=== PATIENT | male | born 1960 | race American Indian/Alaskan Native ===

== ENCOUNTER 2019-10-07 13:49 | Emergency (ER) | payer OTHER, SELFPAY ==
[2019-10-07 13:53] VITALS: BP 158/83; PULSE 118; RESP 16; TEMP 36.6; O2SAT 98
--- NOTE | 2019-10-07 13:57 | ED.DENTAL ---
HPI - Dental/Oral General Chief complaint: Dental/Oral Stated complaint: tooth pain Time Seen by Provider: 10/07/19 13:57 Source: patient and RN notes reviewed History of Present Illness HPI Narrative: Patient is a 59-year-old male who presents the urgent care with complaints of 2 to 3-week history of upper left dental pain. Patient states as of yesterday his left cheek started to swell and is become more painful. Patient denies of any fever, nausea, vomiting. Patient states that his dentist is been out for 6 months due to a fall and then coronavirus. Patient states that he will try to look for another dentist next week . Patient has not taken anything for his pain. No other acute complaints. No acute distress noted. Patient read the plan of care. Related Data Home Medications Medication Instructions Recorded Confirmed losartan 25 mg tablet 25 mg PO DAILY tablet 05/19/19 10/07/19 atorvastatin 40 mg tablet 40 mg PO DAILY 05/27/19 10/07/19 carvedilol 6.25 mg tablet 6.25 mg PO Q12H 05/27/19 10/07/19 ergocalciferol (vitamin D2) 1,250 1,250 mcg PO WEEKLY 05/27/19 10/07/19 mcg (50,000 unit) capsule hydrochlorothiazide 25 mg tablet 25 mg PO DAILY 05/27/19 10/07/19 albuterol sulfate [ProAir HFA] 1 inh INHALATION QID PRN 10/07/19 10/07/19 empagliflozin [Jardiance] 25 mg PO DAILY 10/07/19 10/07/19 liraglutide [Victoza 2-Jay] 0.6 mg SUBCUT DAILY 10/07/19 10/07/19 Allergies Allergy/AdvReac Type Severity Reaction Status Date / Time No Known Allergies Allergy Verified 10/07/19 14:01 Review of Systems Review of Systems: Narrative: CONSTITUTIONAL: Denies fever, chills, or sweats. EYES: Denies visual changes, redness, or discharge. ENT: Reports of upper left dental pain and swelling CARDIOVASCULAR: Denies chest pain, palpitations, or edema. RESPIRATORY: Denies cough or dyspnea. GASTROINTESTINAL: Denies abdominal pain, nausea, vomiting, or diarrhea. GENITOURINARY: Denies dysuria or hematuria. SKIN: Denies rash or itching. MUSCULOSKELETAL: Denies back pain, joint pain, or myalgia. NEUROLOGIC: Denies headache, numbness, or weakness. All other systems reviewed are negative, except as documented in HPI. 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 There is no relevant family history pertinent to the patient complaint. Exam Narrative: Exam Narrative: GENERAL: This is a well-nourished, well-developed patient, in no apparent distress. HEAD: normocephalic, atraumatic. EYES: PERRL. Sclera clear/white. Vision is grossly intact. EARS: External ears normal NOSE: External nose normal with no obvious nasal discharge, nares without redness, no rhinorrhea. THROAT: Mucous membranes moist DENTAL: Tooth numbers 8 through 11 are crown and root canal with surrounding erythemic abscess noted to tooth #11; mild to moderate upper left facial swelling NECK: Neck supple, non-tender without lymphadenopathy SKIN: warm, intact with no suspicious lesions or rash, good texture and turgor. NEURO: awake, alert, and oriented to person, place and time. There were no obvious focal neurologic abnormalities. EXTREMITIES: No clubbing, cyanosis, or edema. Course Vital Signs Vital signs: Vital Signs Temperature 97.9 F 10/07/19 13:53 Pulse Rate 118 H 10/07/19 13:53 Respiratory Rate 16 10/07/19 13:53 Blood Pressure 158/83 H 10/07/19 13:53 Pulse Oximetry 98 10/07/19 13:53 Temperature 97.9 F 10/07/19 13:53 Pulse Rate 118 H 10/07/19 13:53 Respiratory Rate 16 10/07/19 13:53 Blood Pressure 1
[2019-10-07 14:15] VITALS: PULSE 100
== END 2019-10-07 14:15 | disposition home or self-care (01) ==
PROVIDERS: Emergency Provider Nurse Practitioner Family; PCP Nurse Practitioner Family
DX: K04.7 Periapical abscess without sinus (principal)
CPT/HCPCS: 99213; G0463

== ENCOUNTER 2022-06-17 09:20 | Outpatient (CLI) | payer OTHER, SELFPAY ==
[2022-06-17 18:10] LABS: Alanine Aminotransferase 61 U/L (6-50); Albumin Level 4.5 g/dL (3.5-5.1); Alkaline Phosphatase 156 U/L (38-126); Anion Gap 8 mmol/L (8-16); Aspartate Amino Transferase 80 U/L (17-59); Bilirubin,Total 0.6 mg/dL (0.2-1.3); Blood Urea Nitrogen 19 mg/dL (9-20); Calcium 8.7 mg/dL (8.4-10.2); Carbon Dioxide 25 mmol/L (22-30); Chloride 105 mmol/L (98-107); Cholesterol 121 mg/dL (0-200); Estimated Glomerular Filt Rate > 60; Glucose 158 mg/dL (65-110); HDL Direct 25 mg/dL; Potassium 4.4 mmol/L (3.4-5.0); Sodium 138 mmol/L (137-145); Triglycerides 140 mg/dL (<150)
[2022-06-17 18:21] LABS: LDL Cholesterol Direct 63 mg/dL
[2022-06-17 18:28] LABS: Creatinine Urine 59.8 mg/dL
[2022-06-17 18:31] LABS: MALB Creatinine Ratio 12.5 mg/g (0-30); Microalbumin Urine Random 7.5 mg/L (0-16.7)
== END 2022-06-17 09:21 | disposition home or self-care (01) ==
LOC: ANHWCLAB 09:22
PROVIDERS: PCP Nurse Practitioner Family; Visit Provider Internal Medicine Endocrinology, Diabetes & Metabolism
DX: E78.5 Hyperlipidemia, unspecified (principal); E11.65 Type 2 diabetes mellitus with hyperglycemia; Z79.4 Long term (current) use of insulin
CPT/HCPCS: 36415; 80053; 80061; 82043; 82607; 84443

== ENCOUNTER 2024-10-18 07:53 | Outpatient (CLI) | payer MEDICAID, SELFPAY ==
--- NOTE | ~2024-10-18 | US_ITS ---
Limited ABDOMINAL ULTRASOUND (Doppler ultrasound interrogation techniques used as needed for this exa m.) Ordering provider: Bridget Espinal MD History: . evaluate liver and gallbladder . Comparison: None. FINDINGS: PANCREAS: Normal echotexture and normal size. PORTAL VEIN: Hepatopedal flow demonstrated. LIVER: Normal size measuring 17.7 cm. increased echogenicity. No focal hepatic lesions or perihepati c fluid collections are identified. BILIARY DUCTS: No intra or extrahepatic biliary dilation. Common bile duct measures 3.9 mm in diamete r which is normal for patient's age. GALLBLADDER: Normal. No stones, sludge, gallbladder wall thickening or pericholecystic fluid. Wall th icknesses 2.2 mm. Negative sonographic Grigsby's sign. FREE FLUID: None visualized within the upper abdomen. IMPRESSION: Fat infiltration of the liver Otherwise, normal limited ultrasound. Reviewed, dictated and finalized at location A.
== END 2024-10-18 07:54 | disposition home or self-care (01) ==
LOC: ANHIMG 07:59
PROVIDERS: PCP Nurse Practitioner Family; Visit Provider Internal Medicine Endocrinology, Diabetes & Metabolism
DX: R74.8 Abnormal levels of other serum enzymes (principal); K76.0 Fatty (change of) liver, not elsewhere classified
CPT/HCPCS: 76705